=== PATIENT | male | born 1945 | race Caucasian/White ===

== ENCOUNTER 2020-06-07 01:44 | Inpatient (IN) | payer MEDICARE ==
[~2020-06-07] VITALS: Ht 180.3 cm; Wt 120.5 kg
[2020-06-07 04:28] VITALS: BP 153/92
[2020-06-07] MEDS ORDERED: FURO40TA6 PO (05:07)
[2020-06-07] MEDS ORDERED: METO25TA35 PO (05:12)
[2020-06-07] MEDS ORDERED: ATOR10TA9 PO (05:12)
[2020-06-07] MEDS ORDERED: DOCU-131 PO (05:12)
[2020-06-07] MEDS ORDERED: WARF-36 PO (05:12)
[2020-06-07] MEDS ORDERED: TERA5CAP3 PO (05:12)
[2020-06-07] MEDS ORDERED: RAMI2.5C2 PO (05:12)
[2020-06-07] MEDS ORDERED: TAMS-11 PO (05:12)
[2020-06-07] MEDS ORDERED: SPIR1TAB3 PO (05:12)
[2020-06-07] MEDS ORDERED: morphine SULFATE 10 MG/ML, 1ML IVPush PRN ×2 (06:00→09:00)
[2020-06-07] MEDS ORDERED: PROMETHAZINE 25 MG/ML, 1ML IM PRN (06:00)
[2020-06-07] MEDS ORDERED: PHARMACY MAY ADJ FOR RENAL FX MC PRN (06:00)
[2020-06-07] MEDS ORDERED: ACETAMINOPHEN 325 MG TABLET PO PRN (06:00)
[2020-06-07] MEDS: PIPERACILLIN/TAZO/PMX 3.375GM 50 ML IV SCH ×3 (06:33→20:46)
[2020-06-07 06:47] VITALS: BP 131/76
[2020-06-07 07:29] LABS: BASOPHILS # (AUTO) 0.01 x10^3/uL (0-0.1); BASOPHILS % (AUTO) 0 % (0-1); EOSINOPHILS # (AUTO) 0.02 x10^3/uL (0-0.4); EOSINOPHILS % (AUTO) 0 % (1-7); LYMPHOCYTES # (AUTO) 0.57 x10^3/uL (1-3.4); LYMPHOCYTES % (AUTO) 6 % (22-44); MD NO; MEAN CORPUSCULAR HEMOGLOBIN 31.7 pg (27.5-34.5); MEAN CORPUSCULAR HGB CONC 32.5 g/dL (33.2-36.2); MEAN PLATELET VOLUME 9.1 fL (7.4-10.4); MONOCYTES # (AUTO) 0.78 x10^3/uL (0.2-0.8); MONOCYTES % (AUTO) 8 % (2-9); NEUTROPHILS # (AUTO) 9.03 x10^3/uL (1.8-6.8); NEUTROPHILS % (AUTO) 87 % (42-75); PLATELET COUNT 124 x10^3/uL (130-400); RED BLOOD COUNT 4.93 x10^6/uL (4.38-5.82); RED CELL DISTRIBUTION WIDTH 14.4 % (9.4-14.8)
[2020-06-07 07:35] LABS: ALANINE AMINOTRANSFERASE 168 U/L (12-78); ALBUMIN 3.5 g/dL (3.4-5.0); ANION GAP 9 mmol/L (5-15); CHLORIDE 109 mmol/L (98-107); CREATININE 1.52 mg/dL (0.7-1.3)
[2020-06-07 07:37] LABS: ALKALINE PHOSPHATASE 150 U/L (45-117); INTERNATIONAL NORMALIZED RATIO 2.37 (0.93-1.1); PROTHROMBIN TIME 24.6 Seconds (9.6-11.5); TOTAL PROTEIN 6.8 g/dL (6.4-8.2)
[2020-06-07] MEDS ORDERED: DOCUSATE 100 MG CAPSULE PO SCH (09:00)
[2020-06-07] MEDS ORDERED: OXYcodone IR 5MG TABLET PO PRN (09:00)
[2020-06-07] MEDS ORDERED: FUROSEMIDE 20 MG TABLET PO SCH (09:00)
[2020-06-07] MEDS ORDERED: SPIRONOLACT/HCTZ 25/25MG TABLET PO SCH (09:00)
[2020-06-07] MEDS: SODIUM CHLORIDE 0.9% 1,000 ML IV SCH (09:28)
[2020-06-07] MEDS: TAMSULOSIN 0.4 MG CAP.ER.24H PO SCH (09:29)
[2020-06-07] MEDS: METOPROLOL TARTRATE 25 MG TAB PO SCH ×2 (09:29→20:46)
[2020-06-07 12:58] VITALS: BP 120/69
[2020-06-07 20:38] VITALS: BP 146/75
[2020-06-07] MEDS: SENNA/DOCUSATE TABLET PO SCH (20:46)
[2020-06-07] MEDS: TERAZOSIN 5MG CAPSULE PO SCH (20:46)
[2020-06-07] MEDS: ATORVASTATIN 10 MG TABLET PO SCH (20:46)
[2020-06-08 01:22] VITALS: BP 128/72
[2020-06-08] MEDS: PIPERACILLIN/TAZO/PMX 3.375GM 50 ML IV SCH ×4 (02:26→20:37)
[2020-06-08] MEDS: SODIUM CHLORIDE 0.9% 1,000 ML IV SCH ×2 (02:27→20:37)
[2020-06-08 05:39] LABS: BASOPHILS # (AUTO) 0.02 x10^3/uL (0-0.1); BASOPHILS % (AUTO) 0 % (0-1); EOSINOPHILS # (AUTO) 0.22 x10^3/uL (0-0.4); EOSINOPHILS % (AUTO) 3 % (1-7); LYMPHOCYTES # (AUTO) 0.63 x10^3/uL (1-3.4); LYMPHOCYTES % (AUTO) 8 % (22-44); MD NO; MEAN CORPUSCULAR HEMOGLOBIN 31.6 pg (27.5-34.5); MEAN CORPUSCULAR HGB CONC 32.4 g/dL (33.2-36.2); MEAN PLATELET VOLUME 9.1 fL (7.4-10.4); MONOCYTES # (AUTO) 0.72 x10^3/uL (0.2-0.8); MONOCYTES % (AUTO) 10 % (2-9); NEUTROPHILS # (AUTO) 5.98 x10^3/uL (1.8-6.8); NEUTROPHILS % (AUTO) 79 % (42-75); PLATELET COUNT 106 x10^3/uL (130-400); RED BLOOD COUNT 4.63 x10^6/uL (4.38-5.82); RED CELL DISTRIBUTION WIDTH 14.8 % (9.4-14.8)
[2020-06-08 05:59] LABS: ALBUMIN 3.2 g/dL (3.4-5.0); ANION GAP 8 mmol/L (5-15); CALCIUM 8.8 mg/dL (8.5-10.1); CHLORIDE 110 mmol/L (98-107)
[2020-06-08 06:08] LABS: ALANINE AMINOTRANSFERASE 102 U/L (12-78); ALKALINE PHOSPHATASE 123 U/L (45-117); BILIRUBIN,TOTAL 2.3 mg/dL (0.2-1.0); CREATININE 1.39 mg/dL (0.7-1.3)
[2020-06-08 06:11] LABS: PROTHROMBIN TIME 20.7 Seconds (9.6-11.5)
[2020-06-08 06:42] VITALS: BP 143/87
[2020-06-08] MEDS ORDERED: PHYTONADIONE 5 MG TABLET PO ONE (08:00)
[2020-06-08] MEDS: METOPROLOL TARTRATE 25 MG TAB PO SCH ×2 (08:26→20:38)
[2020-06-08] MEDS: TAMSULOSIN 0.4 MG CAP.ER.24H PO SCH (08:26)
[2020-06-08 12:49] VITALS: BP 133/77
[2020-06-08 19:06] VITALS: BP 136/83
[2020-06-08] MEDS: TERAZOSIN 5MG CAPSULE PO SCH (20:38)
[2020-06-08] MEDS: SENNA/DOCUSATE TABLET PO SCH (20:39)
[2020-06-08] MEDS: ATORVASTATIN 10 MG TABLET PO SCH (20:39)
[2020-06-09 01:15] VITALS: BP 107/67
[2020-06-09] MEDS: PIPERACILLIN/TAZO/PMX 3.375GM 50 ML IV SCH ×4 (02:46→21:06)
[2020-06-09 04:52] LABS: BASOPHILS # (AUTO) 0.03 x10^3/uL (0-0.1); BASOPHILS % (AUTO) 0 % (0-1); EOSINOPHILS # (AUTO) 0.28 x10^3/uL (0-0.4); EOSINOPHILS % (AUTO) 4 % (1-7); LYMPHOCYTES # (AUTO) 1.02 x10^3/uL (1-3.4); LYMPHOCYTES % (AUTO) 13 % (22-44); MD NO; MEAN CORPUSCULAR HEMOGLOBIN 31.9 pg (27.5-34.5); MEAN CORPUSCULAR HGB CONC 32.5 g/dL (33.2-36.2); MEAN PLATELET VOLUME 8.9 fL (7.4-10.4); MONOCYTES # (AUTO) 0.89 x10^3/uL (0.2-0.8); MONOCYTES % (AUTO) 11 % (2-9); NEUTROPHILS # (AUTO) 5.78 x10^3/uL (1.8-6.8); NEUTROPHILS % (AUTO) 72 % (42-75); PLATELET COUNT 104 x10^3/uL (130-400); RED BLOOD COUNT 4.49 x10^6/uL (4.38-5.82); RED CELL DISTRIBUTION WIDTH 14.7 % (9.4-14.8)
[2020-06-09 04:59] LABS: ANION GAP 8 mmol/L (5-15); CALCIUM 8.4 mg/dL (8.5-10.1); CHLORIDE 110 mmol/L (98-107)
[2020-06-09 05:04] LABS: ALANINE AMINOTRANSFERASE 67 U/L (12-78); ALKALINE PHOSPHATASE 109 U/L (45-117); BILIRUBIN,TOTAL 1.5 mg/dL (0.2-1.0); CREATININE 1.38 mg/dL (0.7-1.3)
[2020-06-09 05:18] LABS: INTERNATIONAL NORMALIZED RATIO 1.47 (0.93-1.1); PROTHROMBIN TIME 15.2 Seconds (9.6-11.5)
[2020-06-09 08:20] VITALS: BP 146/83
[2020-06-09] MEDS: METOPROLOL TARTRATE 25 MG TAB PO SCH ×2 (08:42→21:07)
[2020-06-09] MEDS: TAMSULOSIN 0.4 MG CAP.ER.24H PO SCH (08:42)
[2020-06-09] MEDS: HEPARIN 5,000 UNITS/ML, 1ML SQ SCH ×2 (09:18→16:59)
[2020-06-09 12:45] VITALS: BP 138/82
[2020-06-09] MEDS: SODIUM CHLORIDE 0.9% 1,000 ML IV SCH (16:58)
[2020-06-09] MEDS: SENNA/DOCUSATE TABLET PO SCH (21:06)
[2020-06-09] MEDS: TERAZOSIN 5MG CAPSULE PO SCH (21:07)
[2020-06-09] MEDS: ATORVASTATIN 10 MG TABLET PO SCH (21:07)
[2020-06-09 21:10] VITALS: BP 142/87
[2020-06-10] MEDS: HEPARIN 5,000 UNITS/ML, 1ML SQ SCH ×3 (00:46→18:25)
[2020-06-10 00:51] VITALS: BP 145/88
[2020-06-10] MEDS: PIPERACILLIN/TAZO/PMX 3.375GM 50 ML IV SCH ×4 (02:52→20:44)
[2020-06-10 07:59] VITALS: BP 157/98
[2020-06-10] MEDS: METOPROLOL TARTRATE 25 MG TAB PO SCH ×2 (09:24→18:25)
[2020-06-10] MEDS: TAMSULOSIN 0.4 MG CAP.ER.24H PO SCH (09:24)
[2020-06-10] MEDS: SODIUM CHLORIDE 0.9% 1,000 ML IV SCH (09:26)
[2020-06-10 11:40] VITALS: BP 141/85
[2020-06-10] MEDS ORDERED: CHLORHEXIDINE 15 ML UDC ONE (12:18)
[2020-06-10] MEDS ORDERED: ROCURONIUM 10 MG/ML,10ML ONE (12:33)
[2020-06-10] MEDS ORDERED: FENTANYL PF 100 MCG/2ML ONE (12:47)
[2020-06-10] MEDS ORDERED: PROPOFOL 10 MG/ML, 20ML ONE (12:57)
[2020-06-10] MEDS ORDERED: SUCCINYLCHOLINE 20 MG/ML, 10ML ONE (12:57)
[2020-06-10] MEDS ORDERED: DEXAMETHASONE 4 MG/ML, 1ML ONE (12:57)
[2020-06-10] MEDS ORDERED: NEOSTIGMINE 1 MG/ML, 10ML ONE (12:57)
[2020-06-10] MEDS ORDERED: ONDANSETRON 2MG/ML, 2ML ONE (12:57)
[2020-06-10] MEDS ORDERED: GLYCOPYRROLATE 0.2MG/1ML, 5ML ONE (12:57)
[2020-06-10] MEDS ORDERED: CEFAZOLIN 1,000 MG ONE (12:57)
[2020-06-10] MEDS ORDERED: OMNIPAQUE 350 MG/ML, 50 ML BOTTLE ONE (13:46)
[2020-06-10] MEDS ORDERED: INDOMETHACIN 50 MG SUPP.RECT ONE (14:05)
[2020-06-10] MEDS ORDERED: INDOMETHACIN 50 MG SUPP.RECT PR ONE (14:30)
[2020-06-10 14:44] VITALS: BP 143/83
[2020-06-10] MEDS ORDERED: MAALOX/HYOSCYAMINE/LIDOCAINE 45 ML BTL PO ONE (16:30)
[2020-06-10] MEDS: SENNA/DOCUSATE TABLET PO SCH (18:26)
[2020-06-10 19:23] VITALS: BP 179/88
[2020-06-10] MEDS: TERAZOSIN 5MG CAPSULE PO SCH (20:43)
[2020-06-10] MEDS: ATORVASTATIN 10 MG TABLET PO SCH (20:44)
[2020-06-10] MEDS: SIMETHICONE 125 MG CHEW TAB PO PRN (21:17)
[2020-06-11] MEDS: HEPARIN 5,000 UNITS/ML, 1ML SQ SCH ×2 (00:38→08:43)
[2020-06-11 02:22] VITALS: BP 161/87
[2020-06-11] MEDS: PIPERACILLIN/TAZO/PMX 3.375GM 50 ML IV SCH ×4 (02:23→20:41)
[2020-06-11] MEDS: SODIUM CHLORIDE 0.9% 1,000 ML IV SCH (02:23)
[2020-06-11 06:50] VITALS: BP 148/90
[2020-06-11] MEDS ORDERED: EPINEPHRINE 1 MG/ML, 1ML ONE (07:05)
[2020-06-11] MEDS ORDERED: BUPIVACAINE/PF 0.5% ONE (07:05)
[2020-06-11] MEDS ORDERED: MIDAZOLAM 1 MG/ML, 2ML ONE (08:39)
[2020-06-11] MEDS ORDERED: FENTANYL PF 250 MCG/5ML ONE (08:40)
[2020-06-11] MEDS: TAMSULOSIN 0.4 MG CAP.ER.24H PO SCH (08:47)
[2020-06-11] MEDS: METOPROLOL TARTRATE 25 MG TAB PO SCH ×2 (08:47→20:42)
[2020-06-11] MEDS ORDERED: CHLORHEXIDINE 15 ML UDC ONE (08:53)
[2020-06-11] MEDS: SIMETHICONE 125 MG CHEW TAB PO PRN (09:28)
[2020-06-11] MEDS ORDERED: ONDANSETRON 2MG/ML, 2ML IVPush PRN (09:30)
[2020-06-11] MEDS ORDERED: LABETALOL 5MG/ML, 20ML IV PRN (09:30)
[2020-06-11] MEDS ORDERED: HYDROmorphone 1 MG/ML, 1ML INJ IVPush PRN (09:30)
[2020-06-11] MEDS ORDERED: hydrALAzine 20 MG/ML, 1ML IV PRN (09:30)
[2020-06-11] MEDS ORDERED: OXYcodone 5 MG/5 ML ORAL.SOL UDC PO PRN (09:30)
[2020-06-11] MEDS ORDERED: FENTANYL PF 100 MCG/2ML IV PRN (09:30)
[2020-06-11 10:20] LABS: MEAN CORPUSCULAR HEMOGLOBIN 31.6 pg (27.5-34.5); MEAN CORPUSCULAR HGB CONC 31.9 g/dL (33.2-36.2); MEAN PLATELET VOLUME 8.9 fL (7.4-10.4); PLATELET COUNT 119 x10^3/uL (130-400); RED BLOOD COUNT 4.79 x10^6/uL (4.38-5.82); RED CELL DISTRIBUTION WIDTH 14.6 % (9.4-14.8)
[2020-06-11 10:23] LABS: ALANINE AMINOTRANSFERASE 44 U/L (12-78); ALBUMIN 3.1 g/dL (3.4-5.0); ANION GAP 8 mmol/L (5-15); CALCIUM 8.5 mg/dL (8.5-10.1); CHLORIDE 111 mmol/L (98-107); CREATININE 1.59 mg/dL (0.7-1.3)
[2020-06-11 10:26] LABS: ALKALINE PHOSPHATASE 98 U/L (45-117); BILIRUBIN,TOTAL 1.2 mg/dL (0.2-1.0); TOTAL PROTEIN 6.2 g/dL (6.4-8.2)
[2020-06-11 10:47] LABS: BASOPHILS # (AUTO) 0.01 x10^3/uL (0-0.1); BASOPHILS % (AUTO) 0 % (0-1); EOSINOPHILS # (AUTO) 0.01 x10^3/uL (0-0.4); EOSINOPHILS % (AUTO) 0 % (1-7); LYMPHOCYTES # (AUTO) 0.64 x10^3/uL (1-3.4); LYMPHOCYTES % (AUTO) 6 % (22-44); MD SCAN; MONOCYTES # (AUTO) 0.55 x10^3/uL (0.2-0.8); MONOCYTES % (AUTO) 5 % (2-9); NEUTROPHILS # (AUTO) 9.15 x10^3/uL (1.8-6.8); NEUTROPHILS % (AUTO) 88 % (42-75)
[2020-06-11 13:49] VITALS: BP 118/71
[2020-06-11] MEDS: SIMETHICONE 125 MG CHEW TAB PO SCH ×3 (13:54→20:42)
[2020-06-11] MEDS ORDERED: SODIUM CHLORIDE 0.9% 1,000ML IVBOLUS ONE (16:00)
[2020-06-11] MEDS ORDERED: BISACODYL 10 MG SUPP PR PRN (18:00)
[2020-06-11] MEDS ORDERED: PINK LADY ENEMA 490 ML BOTTLE PR ONE (18:00)
[2020-06-11] MEDS ORDERED: SODIUM CHLORIDE 0.9% 1,000 ML IV SCH (18:30)
[2020-06-11 19:29] VITALS: BP 148/93
[2020-06-11] MEDS: SENNA/DOCUSATE TABLET PO SCH (20:42)
[2020-06-11] MEDS: TERAZOSIN 5MG CAPSULE PO SCH (20:43)
[2020-06-11] MEDS: ATORVASTATIN 10 MG TABLET PO SCH (20:43)
[2020-06-12] MEDS: SIMETHICONE 125 MG CHEW TAB PO SCH ×4 (02:32→20:25)
[2020-06-12] MEDS: PIPERACILLIN/TAZO/PMX 3.375GM 50 ML IV SCH ×4 (02:32→20:44)
[2020-06-12 02:36] VITALS: BP 150/100
[2020-06-12 07:48] VITALS: BP 149/80
[2020-06-12] MEDS: POLYETHYLENE GLYCOL 17 GM PACKET PO SCH (09:00)
[2020-06-12] MEDS: TAMSULOSIN 0.4 MG CAP.ER.24H PO SCH (09:01)
[2020-06-12] MEDS: METOPROLOL TARTRATE 25 MG TAB PO SCH ×2 (09:01→20:23)
[2020-06-12] MEDS ORDERED: CHLORHEXIDINE 15 ML UDC MM ONE (11:51)
[2020-06-12] MEDS ORDERED: CHLORHEXIDINE 15 ML UDC ONE (11:52)
[2020-06-12] MEDS ORDERED: BUPIVACAINE/PF 0.5% ONE (12:17)
[2020-06-12] MEDS ORDERED: EPINEPHRINE 1 MG/ML, 1ML ONE (12:17)
[2020-06-12] MEDS ORDERED: PROPOFOL 50 ML ONE (12:28)
[2020-06-12] MEDS ORDERED: FENTANYL PF 250 MCG/5ML ONE (12:28)
[2020-06-12] MEDS ORDERED: morphine SULFATE 10 MG/ML, 1ML IVPush PRN (13:00)
[2020-06-12] MEDS ORDERED: ONDANSETRON 2MG/ML, 2ML IVPush PRN (13:00)
[2020-06-12] MEDS ORDERED: DIAZEPAM 5 MG/ML, 2ML IVPush PRN (13:00)
[2020-06-12] MEDS ORDERED: OXYcodone 5 MG/5 ML ORAL.SOL UDC PO PRN (13:00)
[2020-06-12] MEDS ORDERED: PROMETHAZINE 25 MG/ML, 1ML IVPush PRN (13:00)
[2020-06-12] MEDS ORDERED: EPHEDRINE 50 MG/ML, 1ML IVPush PRN (13:00)
[2020-06-12] MEDS ORDERED: LABETALOL 5MG/ML, 20ML IV PRN (13:00)
[2020-06-12] MEDS ORDERED: DIPHENHYDRAMINE 50 MG/ML, 1ML IVPush PRN (13:00)
[2020-06-12] MEDS ORDERED: EPHEDRINE 50 MG/ML, 1ML IM PRN (13:00)
[2020-06-12] MEDS ORDERED: ONDANSETRON 2MG/ML, 2ML ONE (13:32)
[2020-06-12] MEDS ORDERED: FENTANYL PF 100 MCG/2ML ONE ×2 (14:31→14:49)
[2020-06-12] MEDS: FENTANYL PF 100 MCG/2ML IV PRN ×3 (14:33→14:52)
[2020-06-12] MEDS ORDERED: OXYcodone 5 MG/5 ML ORAL.SOL UDC ONE (14:42)
[2020-06-12 15:26] VITALS: BP 143/84
[2020-06-12 17:52] LABS: MICROSCOPIC INDICATED
[2020-06-12 18:07] VITALS: BP 159/91
[2020-06-12] MEDS ORDERED: SODIUM CHLORIDE 0.9% 1,000 ML IV SCH (18:30)
[2020-06-12 18:43] VITALS: BP 140/82
[2020-06-12] MEDS: ATORVASTATIN 10 MG TABLET PO SCH (20:24)
[2020-06-12] MEDS: SENNA/DOCUSATE TABLET PO SCH (20:25)
[2020-06-12] MEDS: TERAZOSIN 5MG CAPSULE PO SCH (20:25)
[2020-06-12] MEDS: IBUPROFEN 200 MG TABLET PO PRN (20:44)
[2020-06-13 00:07] VITALS: BP 133/82
[2020-06-13] MEDS: PIPERACILLIN/TAZO/PMX 3.375GM 50 ML IV SCH ×2 (02:06→08:39)
[2020-06-13] MEDS: SIMETHICONE 125 MG CHEW TAB PO SCH ×4 (02:06→20:44)
[2020-06-13 08:31] VITALS: BP 154/91
[2020-06-13] MEDS: POLYETHYLENE GLYCOL 17 GM PACKET PO SCH (08:35)
[2020-06-13] MEDS: TAMSULOSIN 0.4 MG CAP.ER.24H PO SCH (08:38)
[2020-06-13] MEDS: METOPROLOL TARTRATE 25 MG TAB PO SCH ×2 (08:39→20:44)
[2020-06-13] MEDS: LEVOFLOXACIN/PMX 750MG/150ML 150 ML IV SCH (11:35)
[2020-06-13 12:46] VITALS: BP 119/73
[2020-06-13 20:43] VITALS: BP 155/97
[2020-06-13] MEDS: SENNA/DOCUSATE TABLET PO SCH (20:44)
[2020-06-13] MEDS: TERAZOSIN 5MG CAPSULE PO SCH (20:44)
[2020-06-13] MEDS: ATORVASTATIN 10 MG TABLET PO SCH (20:44)
[2020-06-13] MEDS: IBUPROFEN 200 MG TABLET PO PRN (20:49)
[2020-06-13] MEDS ORDERED: MAGNESIUM SULFATE PMX 2GM/50ML 50 ML IV ONE (22:50)
[2020-06-14 00:13] VITALS: BP 120/83
[2020-06-14] MEDS: SIMETHICONE 125 MG CHEW TAB PO SCH ×2 (02:11→09:13)
[2020-06-14 08:44] VITALS: BP 145/96
[2020-06-14] MEDS: POLYETHYLENE GLYCOL 17 GM PACKET PO SCH (09:00)
[2020-06-14] MEDS: METOPROLOL TARTRATE 25 MG TAB PO SCH (09:13)
[2020-06-14] MEDS: TAMSULOSIN 0.4 MG CAP.ER.24H PO SCH (09:13)
[2020-06-14] MEDS ORDERED: LEVO750T6 PO (10:52)
[2020-06-14] MEDS: LEVOFLOXACIN/PMX 750MG/150ML 150 ML IV SCH (11:00)
== END 2020-06-14 13:45 | disposition home health service (06) | DRG 853 ==
LOC: UNDOADMIN 04:22 → 5SO 04:22 → DCLOUNGE 06-14 13:31
PROVIDERS: ADMIT Family Medicine; ATTEND Hospitalist
PROC: 0F798DZ Dilation of Common Bile Duct with Intraluminal Device, Via Natural or Artificial Opening Endoscopic (ICD-10-PCS; 2020-06-10)
PROC: 0FC98ZZ Extirpation of Matter from Common Bile Duct, Via Natural or Artificial Opening Endoscopic (ICD-10-PCS; 2020-06-10)
PROC: BF131ZZ Fluoroscopy of Gallbladder and Bile Ducts using Low Osmolar Contrast (ICD-10-PCS; 2020-06-10)
PROC: 0T9B70Z Drainage of Bladder with Drainage Device, Via Natural or Artificial Opening (ICD-10-PCS; 2020-06-12)
PROC: 0FT44ZZ Resection of Gallbladder, Percutaneous Endoscopic Approach (ICD-10-PCS; principal; 2020-06-12 12:30)
DX: A41.9 Sepsis, unspecified organism (principal); K80.67 Calculus of gallbladder and bile duct with acute and chronic cholecystitis with obstruction; I48.20 Chronic atrial fibrillation, unspecified; D68.69 Other thrombophilia; N39.0 Urinary tract infection, site not specified; N17.9 Acute kidney failure, unspecified; E66.9 Obesity, unspecified; E78.5 Hyperlipidemia, unspecified; N40.1 Benign prostatic hyperplasia with lower urinary tract symptoms; R33.8 Other retention of urine; G47.30 Sleep apnea, unspecified; G89.29 Other chronic pain; I12.9 Hypertensive chronic kidney disease with stage 1 through stage 4 chronic kidney disease, or unspecified chronic kidney disease; I25.10 Atherosclerotic heart disease of native coronary artery without angina pectoris; K57.10 Diverticulosis of small intestine without perforation or abscess without bleeding; N18.9 Chronic kidney disease, unspecified; R74.0 Nonspecific elevation of levels of transaminase and lactic acid dehydrogenase [LDH]; R94.5 Abnormal results of liver function studies; N18.3 Chronic kidney disease, stage 3 (moderate); Z79.01 Long term (current) use of anticoagulants; Z87.891 Personal history of nicotine dependence; Z90.49 Acquired absence of other specified parts of digestive tract; Z95.1 Presence of aortocoronary bypass graft; Z68.37 Body mass index [BMI] 37.0-37.9, adult; Z20.828 Contact with and (suspected) exposure to other viral communicable diseases
CPT/HCPCS: 36415; 74181; 74328; 80053; 81001; 83735; 84100; 85025; 85610; 87086; 87635; 88304; 93005; G0378; J0171; J0690; J1100; J1644; J1956; J2250; J2405; J2543; J2704; J2710; J3010; Q9967; C1769; C1894; C2625; J0330; J2270; J3475; J7030

== ENCOUNTER → 2020-07-10 | Outpatient (CLI) | payer MEDICARE ==
[~2020-07-10] MED LIST: AMOX1TAB64 PO; ATOR10TA9 PO; DOCU-131 PO; FURO-92 PO; FURO40TA6 PO; LEVO750T6 PO; METO25TA35 PO; RAMI2.5C2 PO; SPIR1TAB3 PO; TAMS-11 PO; TERA5CAP3 PO; WARF-36 PO
== END | disposition home or self-care (01) ==
LOC: CFH 11:39
PROVIDERS: ATTEND Internal Medicine
DX: K65.1 Peritoneal abscess (principal)
CPT/HCPCS: 74150

== ENCOUNTER → 2020-07-13 | Outpatient (CLI) | payer MEDICARE | END | disposition home or self-care (01) | LOC: RAD 11:50 | PROVIDERS: ATTEND Physician Assistant Surgical | DX: R93.41 Abnormal radiologic findings on diagnostic imaging of renal pelvis, ureter, or bladder (principal); N32.3 Diverticulum of bladder; N32.89 Other specified disorders of bladder | CPT/HCPCS: 51600; 74430; Q9958 ==

== ENCOUNTER 2020-08-15 13:41 | Inpatient (IN) | payer MEDICARE ==
[~2020-08-15] VITALS: Ht 180.3 cm; Wt 106.0 kg
[2020-08-15 14:52] LABS: ALANINE AMINOTRANSFERASE 25 U/L (12-78); ALBUMIN 3.9 g/dL (3.4-5.0); ANION GAP 1 mmol/L (5-15); CALCIUM 9.5 mg/dL (8.5-10.1); CHLORIDE 107 mmol/L (98-107); CREATININE 1.64 mg/dL (0.7-1.3)
[2020-08-15 14:54] LABS: ALKALINE PHOSPHATASE 121 U/L (45-117); BILIRUBIN,TOTAL 0.8 mg/dL (0.2-1.0); TOTAL PROTEIN 7.4 g/dL (6.4-8.2)
[2020-08-15 15:08] LABS: BASOPHILS % (AUTO) 0 % (0-1); EOSINOPHILS % (AUTO) 1 % (1-7); LYMPHOCYTES % (AUTO) 4 % (22-44); MEAN CORPUSCULAR HEMOGLOBIN 31.6 pg (27.5-34.5); MEAN CORPUSCULAR HGB CONC 32.8 g/dL (33.2-36.2); MEAN PLATELET VOLUME 8.6 fL (7.4-10.4); MONOCYTES % (AUTO) 6 % (2-9); NEUTROPHILS % (AUTO) 90 % (42-75); PLATELET COUNT 144 x10^3/uL (130-400); RED BLOOD COUNT 4.74 x10^6/uL (4.38-5.82); RED CELL DISTRIBUTION WIDTH 15.8 % (9.4-14.8)
--- NOTE | 2020-08-15 15:37 | NUR ---
[employer]: PT AMBULATORY TO ROOM FROM LOBBY
[2020-08-15] MEDS ORDERED: SODIUM CHLORIDE 0.9%, 500ML IVBOLUS ONE (16:00)
[2020-08-15 16:55] LABS: MICROSCOPIC INDICATED
[2020-08-15] MEDS ORDERED: CEFTRIAXONE PMX 1GM/50ML 50 ML ONE (17:09)
--- NOTE | 2020-08-15 17:26 | NUR ---
antibiotics initiated. blood cultures x2 done before hand. IV 500 ml bolus done
[2020-08-15] MEDS ORDERED: CEFTRIAXONE PMX 1GM/50ML 50 ML IV ONE (17:30)
[2020-08-15] MEDS ORDERED: DOCUSATE 100 MG CAPSULE PO PRN (18:00)
[2020-08-15] MEDS ORDERED: HYDROcodone/APAP 5/325 TABLET PO PRN (18:00)
[2020-08-15] MEDS ORDERED: ENALAPRILAT 1.25 MG/ML, 2ML IVPush PRN (18:00)
[2020-08-15] MEDS ORDERED: ONDANSETRON 2MG/ML, 2ML IVPush PRN (18:00)
[2020-08-15] MEDS ORDERED: BACLOFEN 10 MG TABLET PO PRN (18:00)
[2020-08-15] MEDS: LACTATED RINGERS 1,000 ML IV SCH (18:00)
[2020-08-15] MEDS ORDERED: ONDANSETRON ODT 4 MG PO PRN (18:00)
[2020-08-15] MEDS ORDERED: MELATONIN 5 MG TABLET PO PRN (18:00)
[2020-08-15 18:07] LABS: MD SCAN
[2020-08-15] MEDS ORDERED: SPIR25TA5 PO (18:29)
[2020-08-15] MEDS ORDERED: TAMS-11 PO (18:31)
[2020-08-15] MEDS ORDERED: LOSA1TAB22 PO (18:37)
[2020-08-15] MEDS ORDERED: METO25TA35 PO (18:37)
[2020-08-15] MEDS ORDERED: WARF5TAB9 PO (18:37)
[2020-08-15] MEDS ORDERED: FURO20TA3 PO (18:37)
[2020-08-15] MEDS ORDERED: TERA5CAP3 PO (18:37)
[2020-08-15] MEDS ORDERED: CLINDAMYCIN PMX 600MG/50ML 50 ML ONE (18:42)
--- NOTE | 2020-08-15 18:42 | NUR ---
500ml bolus and antibiotics completed. atc x1 to floor for report.
[2020-08-15 19:54] VITALS: BP 143/98
[2020-08-15] MEDS ORDERED: WARFARIN 5 MG TABLET PO-COUM SCH (20:00)
[2020-08-15] MEDS ORDERED: LOSA25TA25 PO (23:41)
[2020-08-15 23:46] LABS: INTERNATIONAL NORMALIZED RATIO 3.16 (0.93-1.1); PROTHROMBIN TIME 33.1 Seconds (9.6-11.5)
[2020-08-16] MEDS ORDERED: WARFARIN 2 MG TABLET PO-COUM ONE (00:30)
[2020-08-16 00:39] VITALS: BP 98/60
[2020-08-16 00:40] VITALS: BP 108/67
[2020-08-16] MEDS: LACTATED RINGERS 1,000 ML IV SCH (01:22)
[2020-08-16] MEDS: CEFTRIAXONE PMX 1GM/50ML 50 ML IV SCH ×2 (05:48→17:29)
[2020-08-16 06:04] LABS: BASOPHILS % (AUTO) 1 % (0-1); EOSINOPHILS % (AUTO) 2 % (1-7); LYMPHOCYTES % (AUTO) 10 % (22-44); MEAN CORPUSCULAR HEMOGLOBIN 31.4 pg (27.5-34.5); MEAN CORPUSCULAR HGB CONC 33.1 g/dL (33.2-36.2); MEAN PLATELET VOLUME 8.8 fL (7.4-10.4); MONOCYTES % (AUTO) 8 % (2-9); NEUTROPHILS % (AUTO) 79 % (42-75); PLATELET COUNT 122 x10^3/uL (130-400); RED CELL DISTRIBUTION WIDTH 15.3 % (9.4-14.8)
[2020-08-16 06:10] LABS: CHLORIDE 110 mmol/L (98-107); INTERNATIONAL NORMALIZED RATIO 2.9 (0.93-1.1); PROTHROMBIN TIME 30.4 Seconds (9.6-11.5)
[2020-08-16 06:20] LABS: MD NO
[2020-08-16 06:27] LABS: ALANINE AMINOTRANSFERASE 18 U/L (12-78); ALKALINE PHOSPHATASE 97 U/L (45-117); ANION GAP 8 mmol/L (5-15); CALCIUM 9.1 mg/dL (8.5-10.1); CREATININE 1.28 mg/dL (0.7-1.3); TOTAL PROTEIN 5.9 g/dL (6.4-8.2)
[2020-08-16 07:03] VITALS: BP 125/80
[2020-08-16] MEDS: TAMSULOSIN 0.4 MG CAP.ER.24H PO SCH (12:33)
[2020-08-16 13:30] VITALS: BP 112/71
[2020-08-16] MEDS ORDERED: WARFARIN 2 MG TABLET PO-COUM SCH (18:00)
[2020-08-16] MEDS ORDERED: WARFARIN 3 MG TABLET PO-COUM SCH (18:00)
[2020-08-17 01:58] VITALS: BP 114/71
[2020-08-17] MEDS: CEFTRIAXONE PMX 1GM/50ML 50 ML IV SCH (05:27)
[2020-08-17 06:09] LABS: INTERNATIONAL NORMALIZED RATIO 3.11 (0.93-1.1); PROTHROMBIN TIME 32.6 Seconds (9.6-11.5)
[2020-08-17 07:13] VITALS: BP 134/84
[2020-08-17] MEDS: TAMSULOSIN 0.4 MG CAP.ER.24H PO SCH (09:00)
[2020-08-17] MEDS ORDERED: CEFD300C37 PO (09:14)
== END 2020-08-17 11:03 | disposition home or self-care (01) | DRG 872 ==
LOC: ED 16:44 → EDIP 17:38 → 3N 19:48 → DCLOUNGE 08-17 10:52
PROVIDERS: ADMIT Family Medicine; ATTEND Family Medicine
DX: A41.9 Sepsis, unspecified organism (principal); E87.2 Acidosis; N39.0 Urinary tract infection, site not specified; N17.9 Acute kidney failure, unspecified; I48.20 Chronic atrial fibrillation, unspecified; E78.5 Hyperlipidemia, unspecified; G47.30 Sleep apnea, unspecified; I13.10 Hypertensive heart and chronic kidney disease without heart failure, with stage 1 through stage 4 chronic kidney disease, or unspecified chronic kidney disease; I25.10 Atherosclerotic heart disease of native coronary artery without angina pectoris; M1A.9XX0 Chronic gout, unspecified, without tophus (tophi); N18.9 Chronic kidney disease, unspecified; N40.0 Benign prostatic hyperplasia without lower urinary tract symptoms; R65.20 Severe sepsis without septic shock; Z79.01 Long term (current) use of anticoagulants; Z95.1 Presence of aortocoronary bypass graft; Z87.891 Personal history of nicotine dependence; Z90.49 Acquired absence of other specified parts of digestive tract
CPT/HCPCS: 36415; 71045; 80053; 81001; 82962; 83605; 83735; 84145; 85025; 85610; 87040; 87077; 87086; 87186; G0378; J0696; J7040; J7120

== ENCOUNTER 2020-09-25 14:09 | Outpatient (CLI) | payer MEDICARE ==
[~2020-09-25 14:09] MED LIST changes: +CEFD300C37 PO; +FURO20TA3 PO; +LOSA1TAB22 PO; +LOSA25TA25 PO; +SPIR25TA5 PO; +WARF5TAB9 PO
== END 2020-09-25 23:59 | disposition home or self-care (01) ==
LOC: STAR 14:09
PROVIDERS: ATTEND Internal Medicine Gastroenterology
DX: Z01.812 Encounter for preprocedural laboratory examination (principal); Z20.828 Contact with and (suspected) exposure to other viral communicable diseases; I48.91 Unspecified atrial fibrillation; I25.2 Old myocardial infarction
CPT/HCPCS: 87635; 93005

== ENCOUNTER 2020-10-01 06:17 | Day surgery (SDC) | payer MEDICARE ==
[~2020-10-01] VITALS: Ht 180.3 cm; Wt 100.0 kg
[2020-10-01] MEDS ORDERED: CHLORHEXIDINE 15 ML UDC MM STA (06:29)
[2020-10-01] MEDS ORDERED: LACTATED RINGERS 1,000 ML IV SCH (06:30)
[2020-10-01 06:41] VITALS: BP 130/84
[2020-10-01] MEDS ORDERED: FENTANYL PF 100 MCG/2ML ONE (07:18)
[2020-10-01] MEDS ORDERED: HALOPERIDOL 5 MG/ML IV PRN (07:30)
[2020-10-01] MEDS ORDERED: EPHEDRINE 50 MG/ML, 1ML IVPush PRN (07:30)
[2020-10-01] MEDS ORDERED: ONDANSETRON 2MG/ML, 2ML IVPush PRN (07:30)
[2020-10-01] MEDS ORDERED: OXYcodone 5 MG/5 ML ORAL.SOL UDC PO PRN (07:30)
[2020-10-01] MEDS ORDERED: METOPROLOL 1 MG/ML, 5ML IV PRN (07:30)
[2020-10-01] MEDS ORDERED: hydrALAzine 20 MG/ML, 1ML IV PRN (07:30)
[2020-10-01] MEDS ORDERED: METOCLOPRAMIDE 5 MG/ML, 2ML IVPush PRN (07:30)
[2020-10-01] MEDS ORDERED: HYDROmorphone 1 MG/ML, 1ML INJ IVPush PRN (07:30)
[2020-10-01] MEDS ORDERED: ACETAMINOPHEN 325 MG TABLET PO PRN (07:30)
[2020-10-01] MEDS ORDERED: FENTANYL PF 100 MCG/2ML IV PRN (07:30)
[2020-10-01] MEDS ORDERED: LABETALOL 5MG/ML, 20ML IV PRN (07:30)
[2020-10-01] MEDS ORDERED: ROCURONIUM 10 MG/ML,10ML ONE (07:34)
[2020-10-01] MEDS ORDERED: ONDANSETRON 2MG/ML, 2ML ONE (07:34)
[2020-10-01] MEDS ORDERED: DEXAMETHASONE 4 MG/ML, 1ML ONE (07:34)
[2020-10-01] MEDS ORDERED: PHENYLEPHRINE 10 MG/ML ONE (07:34)
[2020-10-01] MEDS ORDERED: SUCCINYLCHOLINE 20 MG/ML, 10ML ONE (07:34)
[2020-10-01] MEDS ORDERED: PROPOFOL 10 MG/ML, 20ML ONE (07:34)
[2020-10-01 07:37] LABS: INTERNATIONAL NORMALIZED RATIO 1.65 (0.93-1.1); PROTHROMBIN TIME 17.4 Seconds (9.6-11.5)
[2020-10-01] MEDS ORDERED: OMNIPAQUE 350 MG/ML, 50 ML BOTTLE ONE (08:14)
[2020-10-01] MEDS ORDERED: ACETAMINOPHEN 650 MG/20.3 ML UDC ONE (08:57)
== END 2020-10-01 10:55 | disposition home or self-care (01) ==
LOC: OUT 06:17
PROVIDERS: ATTEND Internal Medicine Gastroenterology
DX: K80.50 Calculus of bile duct without cholangitis or cholecystitis without obstruction (principal); K29.50 Unspecified chronic gastritis without bleeding; K57.10 Diverticulosis of small intestine without perforation or abscess without bleeding; I10 Essential (primary) hypertension; G47.33 Obstructive sleep apnea (adult) (pediatric); I48.91 Unspecified atrial fibrillation; Z79.899 Other long term (current) drug therapy; Z72.89 Other problems related to lifestyle; Z87.891 Personal history of nicotine dependence; Z95.5 Presence of coronary angioplasty implant and graft; Z98.890 Other specified postprocedural states; Z82.49 Family history of ischemic heart disease and other diseases of the circulatory system
CPT/HCPCS: 36415; 43239; 43264; 43275; 74328; 85610; 85730; 88305; C1769; J0330; J1100; J2370; J2405; J2704; J3010; J7120; Q9967